=== PATIENT | male | born 1980 | race Caucasian/White ===

== ENCOUNTER → 2023-01-13 | Outpatient (CLI) | payer OTHER ==
--- NOTE | 2023-01-13 18:51 | CT ---
EXAMINATION TYPE: CT sinus wo con CT DLP: 593.6 mGycm, Automated exposure control for dose reduction was used. DATE OF EXAM: 01/13/2023 6:21 PM COMPARISON: None. CLINICAL INDICATION:Male, 42 years old with history of G50.1 ATYPICAL FACIAL PAIN; , sinus drainage x 2 months with migraines TECHNIQUE: Multiple thin axial images were obtained through the paranasal sinuses without the use of IV contrast. Additional coronal and sagittal reformatted images were submitted for evaluation. Contrast used: none Oral contrast used: none FINDINGS: Frontal sinuses: Mucosal thickening bilaterally right greater than left. Frontal Recess: Opacified bi laterally. Maxillary Sinuses: Mucosal thickening with complete opacification of the right and less than 50% left mucosal thickening of the left. Maxillary Infundibula([facility]): Opacified bilaterally, No Jame cells identified. Ethmoid sinuses: Normally developed mucosal thickening bilaterally. Ethmoidal notch: Unprotected bila teral anterior ethmoidal arteries. Sphenoid sinuses: Normally developed with mild mucosal thickening.. There is sellar sphenoid sinus pn eumatization without evidence of dehiscence. No dehiscence of carotid canal. No evidence of optic ne rve dehiscence within the sphenoid sinus. Onodi cells identified with no dehiscence of the optic nerv es. Sphenoethmoidal recesses: Opacified bilaterally.. Nasal septum: Within normal limits.. Nasal Turbinates: Mucosal thickening bilaterally. Mastoid air cells & middle ears: The air cells are clear. The middle ears are grossly unremarkable. Modified Soft tissues & Brain: Partially seen without gross abnormality. Globes are intact. Other: Cribriform plate demonstrates symmetric Keros classification type 3 cribriform plate. No evidence of bony dehiscence of skull base. Lamina papyracea is intact without evidence of remote orbital fracture or orbital prolapse into the e thmoid sinus. IMPRESSION: 1. Moderate to severe paranasal sinus disease. 2. The ostiomeatal units, frontonasal and sphenoethmoidal recesses are opacified bilaterally.
== END | disposition home or self-care (01) ==
LOC: RADCTMAIN 09:42
PROVIDERS: ATTEND Otolaryngology
DX: G50.1 Atypical facial pain (principal); J34.89 Other specified disorders of nose and nasal sinuses
CPT/HCPCS: 70486